=== PATIENT | female | born 1950 | race Caucasian/White ===

== ENCOUNTER → 2017-02-23 | Outpatient (CLI) | payer OTHER, MEDICARE ==
[~2017-02-23] MED LIST: ALEVE 220MG220 MG PO; ASPIRIN E.C. 8181 MG PO; BENICAR HCT 251 TAB PO; BISOPROLOL FUMA1 TA1 PO; CARDI-OMEGA1000 MG PO; DULCOLAX100 MG PO; MIRALAX17 GM/DOSE PO; PREVACID 30MG30 M1 PO; PRILOSEC 20MG20 MG PO; PRILOSEC20 MG PO; TYLENOL 500MG500 MG PO; TYLENOL PO; WOMEN'S ONE DAI1 TAB PO
== END ==
LOC: MC.RAD 14:00
DX: N61.1 Abscess of the breast and nipple (principal)